=== PATIENT | male | born 1975 ===

== ENCOUNTER 2024-06-13 20:43 | Emergency (ER) | payer OTHER, SELFPAY ==
[2024-06-13 21:41] VITALS: BP 150/82; PULSE 108; RESP 20; TEMP 37.7; O2SAT 18; BMI 24.0
[2024-06-13 22:56] LABS: PCR FLU A Negative PCR FLU A (Negative); PCR FLU B Negative PCR FLU B (Negative); PCR RSV Negative PCR RSV (Negative); SARS PCR* Negative SARS-CoV-2 (Negative)
--- NOTE | 2024-06-14 01:44 | ED.GENADULT ---
HPI - General Adult General Date Seen: 06/13/24 Chief complaint: Fever Stated complaint: body aches Time Seen by Provider: 06/13/24 22:30 History of Present Illness HPI narrative: This is a pleasant 49-year-old gentleman presenting to the ER today with his 8-year-old son who is also being seen. 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 His 12-year-old son was sick a couple of weeks ago with pneumonia. Both the patient and his son developed symptoms 3 days ago on Monday. They both have had cough, nonproductive, mild sore throat, fever and chills, body aches. The patient also has a fairly significant headache. Vision is normal. No neck stiffness. He has no recent head injury. He is not able to take Tylenol or ibuprofen because of previous allergy. Apparently they cause lip swelling. He has been taking [place] but it is not helping. He has a cough but it is nonproductive. No chest pain or shortness of breath. No vomiting or diarrhea. Related Data Previous Rx's ?Medication ?Instructions ?Recorded benzonatate 100 mg capsule 100 mg PO TID PRN cough #14 caps 06/14/24 doxycycline hyclate 100 mg capsule 100 mg PO BID #14 caps 06/14/24 Allergies Allergy/AdvReac Type Severity Reaction Status Date / Time acetaminophen (From Tylenol) Allergy Intermediate Lip Verified 06/13/24 21:44 Swelling ibuprofen Allergy Intermediate Lip Verified 06/13/24 21:44 Swellling Exam Narrative: Exam Narrative: Constitutional: Appears well-developed and well-nourished. Alert. Conversant here to hadoop java developer at. I think uterus it substantial Australian because he answers many questions without the interpreters of systems. Non toxic. HENT: Head: Atraumatic. Nose: Nose normal. Right ear: Rose, mastoid, canal, TM normal. Left ear: Pinna, mastoid, canal, TM normal. Mouth/Throat: Oral mucosa is clear and moist. no trismus. Pharynx normal. Tonsils symmetric. No tonsillar enlargement, erythema, or exudate. Eyes: Conjunctivae normal. EOM normal. Pupils equal, round, and reactive to light. No scleral icterus. Neck: Normal range of motion. Neck supple. No tracheal deviation present. Cardiovascular: Normal rate, regular rhythm. No gallop. No friction rub. No murmur heard. Symmetric radial artery pulses Pulmonary/Chest: Effort normal. No stridor. No respiratory distress. No wheezes. Left basilar rales and rhonchi. These are read reproducible on multiple repeat auscultations. No tenderness. Abdominal: Soft. Bowel sounds normal. No distension. No mass. No tenderness. No rebound. No guarding. Musculoskeletal: RUE: Normal range of motion. No tenderness. No deformity LUE: Normal range of motion. No tenderness. No deformity RLE: Normal range of motion. No edema. No tenderness. No deformity LLE: Normal range of motion. No edema. No tenderness. No deformity Neurological: Alert and oriented to person, place, and time. Normal strength. CN II-VII intact. No sensory deficit. GCS eye subscore is 4. GCS verbal subscore is 5. GCS motor subscore is 6. Normal coordination Skin: Skin is warm and dry. No rash noted. No pallor. Normal capillary refill. Psychiatric: Normal mood. Normal affect. Const: Vital Signs, click to edit/add: Vital Signs - 24 hr 06/13/24 21:41 Temperature 99.9 F H Pulse Rate [Right Pulse Oximeter] 108 H Respiratory Rate 20 Blood Pressure [Ri ght Upper Arm] 150/82 H Pulse Oximetry 18 L Oxygen Delivery Me thod Room Air Course Vital Signs Vital signs: Initial Vital Signs Temperature 99.9 F H 06/13/24 21:41 Temperature Source Temporal Artery Scan 06/13/24 21:41 Pulse Rate 108 H 06/13/24 21:41 Respiratory Rate 20 06/13/24 21:41 Blood Pressure 150/82 H 06/13/24 21:41 Blood Pressure Mean 104 06/13/24 21:41 Blood Pressure Position Sitting 06/13/24 21:41 Pulse Oximetry 18 L 06/13/24 21:41 Oxygen Delivery Method Room Air 06/13/24 21:41 Sepsis Action Taken by Nursing No Action Required 06/13/24 21:41 Vital Signs Temperature 99.9 F H 06/13/24 21:41 Pulse Rate 108 H 06/13/24 21:41 Respiratory Rate 20 06/13/24 21:41 Blood Pressure 150/82 H 06/13/24 21:41 Pulse Oximetry 18 L 06/13/24 21:41 Oxygen Delivery Method Room Air 06/13/24 21:41 Temperature 99.9 F H 06/13/24 21:41 Pulse Rate 108 H 06/13/24 21:41 Respiratory Rate 20 06/13/24 21:41 Blood Pressure 150/82 H 06/13/24 21:41 Pulse Oximetry 18 L 06/13/24 21:41 Oxygen Delivery Method Room Air 06/13/24 21:41 Medical Decision Making MDM Narrative Medical decision making narrative: This patient presents for evaluation of cough, body aches, sore throat, headache, fever and chills.. This is consistent with an upper respiratory tract infection. Viral testing negative for coronavirus, influenza, RSV. The patient's 12-year-old son was recently diagnosed with pneumonia. On clinical exam he does have left basilar rales or rhonchi which I think are suspicious for left lower lobe infiltrate.. There is no signs at this point of serious bacterial infection such as OM, RPA, epiglottitis, RAIL TRANSPORTATION TABELER, strep pharyngitis, pneumonia, sinusitis, meningitis, bacteremia. There are no gastrointestinal symptoms at this point and no signs of dehydration. Close followup with primary care physician is indicated. Return to ED for fever > 103, protracted vomiting, confusion, or other worsening. Of note patient's oxygen sat is charted low at 18 but actually this is respiratory rate. Oxygen sats are in the 90s on room air. Respirations are unlabored. He is not having any wheezing or bronchospasm. Administered oxycodone for his headache here in the ER. Overall headache is not severe. Typically would likely respond to [id number] medications but he has allergies to acetaminophen and ibuprofen therefore these cannot be administered. At this point he has no altered mental status, neck stiffness or other symptoms of meningitis. Would hold off on LP for now Will start doxycycline 100 b.i.d. for 7 days for community acquired pneumonia. Prescription for Tessalon. 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 [facility] Lab Data Labs: Lab Results 06/13/24 Range/Units 21:30 SARS-CoV-2 (PCR) Negative SARS-CoV-2 (Negative) Influenza Type A (PCR) Negative PCR FLU A (Negative) Influenza Type B (PCR) Negative PCR FLU B (Negative) RSV (PCR) Negative PCR RSV (Negative) Discharge Plan Discharge Clinical Impression: Left lower lobe pneumonia Patient Disposition: Home, Self-Care Condition: Stable Instructions: Community Acquired Pneumonia (DC) Additional Instructions: Please come back to the ER right away if you have worsening trouble breathing, high fever, confusion, vomiting or dehydration, weakness, or any other problems Prescriptions: New benzonatate 100 mg capsule 100 mg PO TID PRN (Reason: cough) Qty: 14 0RF doxycycline hyclate 100 mg capsule 100 mg PO BID Qty: 14 0RF Follow Up/Referrals: Provider,Not a Local [Primary Care Provider] - Stand Alone Forms: [employer] Info Instructions
== END 2024-06-14 00:21 | disposition home or self-care (01) ==
PROVIDERS: Emergency Medicine; Emergency Provider Emergency Medicine
DX: J18.1 Lobar pneumonia, unspecified organism (principal)
CPT/HCPCS: 87631; 99283